=== PATIENT | female | born 1940 | race Caucasian/White ===

== ENCOUNTER 2017-03-12 11:55 | Emergency (ER) | payer OTHER ==
--- NOTE | 2017-03-12 12:08 | PDOC ---
History of Present Illness - General Stated Complaint: RASH Time Seen by Provider: 03/12/17 12:08 *DC/Admit/Observation/Transfer - Attestations Physician Attestion: 03/12/17 12:08 I, Dr. Raghav Bergeron, attest that this document has been prepared under my direction and personally reviewed by me in its entirety. I further attest, that it accurately reflects all work, treatment, procedures and medical decision -making performed by me.
[2017-03-12 12:21] VITALS: BP 161/79; PULSE 64; TEMP 98.7; BMI 30.2
[2017-03-12] MEDS ORDERED: methylPREDNISolone NA SUCC 125 MG/2 ML VIAL IVPB ONE (12:32)
[2017-03-12] MEDS ORDERED: methylPREDNISolone NA SUCC 125 MG/2 ML VIAL ONE (12:47)
[2017-03-12 12:51] LABS: BASOPHIL 0.5 % (0-2.0); EOSINOPHIL 4.9 % (0-4.5); MCH 27.6 pg (25.7-33.7); MCHC 33.1 g/dl (32.0-36.0); MEAN CELL VOLUME 83.5 fl (80-96); MEAN PLT VOLUME 8.5 fl (7.5-11.1); NEUTROPHILS 73.6 % (42.8-82.8); PLATELET COUNT 211 K/MM3 (134-434); RDW 14.5 % (11.6-15.6); WHITE BLOOD COUNT 9.1 K/mm3 (4.0-10.0)
[2017-03-12 13:18] LABS: ALBUMIN 3.5 g/dl (3.4-5.0); ALK PHOS 66 U/L (45-117); ANION GAP 10 (8-16); BILIRUBIN,TOTAL 0.5 mg/dL (0.2-1.0); CALCIUM 8.8 mg/dL (8.5-10.1); CO2 31 mmol/L (21-32); CREATININE 0.9 mg/dL (0.55-1.02); GLUCOSE,RANDOM 87 mg/dL (74-106); SGOT/AST 15 U/L (15-37); SGPT/ALT 27 U/L (12-78)
[2017-03-12] MEDS ORDERED: POTASSIUM CHLORIDE TABS 20 MEQ TABLET.ER (FP) PO ONE ×2 (13:46→13:59)
--- NOTE | 2017-03-12 14:09 | PDOC ---
History of Present Illness - General Chief Complaint: Rash Stated Complaint: RASH Time Seen by Provider: 03/12/17 12:08 History Source: Patient, Other (son) Exam Limitations: No Limitations - History of Present Illness Initial Comments: 03/12/17 14:04 77-year-old female presents the ED with complaints of pruritic rash to lower extremities now radiating to her pressure recent torso. Patient states was seen last week and a nearby ER and was told that she likely had a fungal rash. Patient did have skin biopsies done by filer repairer and was told her , it was not scabies but did prescribe permethrin upon discharge. Patient states itching continues and denies any fever, chills, arthralgia or myalgia. Patient was also seen by infectious disease physician who related to fungus. Timing/Duration: other (3 weeks) Severity: moderate Associated Symptoms: reports: rash Past History - Travel Traveled outside of the country in the last 30 days: No Close contact w/someone who was outside of country & ill: No - Past Medical History Allergies/Adverse Reactions: Allergies Allergy/AdvReac Type Severity Reaction Status Date / Time No Known Allergies Allergy Verified 03/12/17 12:21 Home Medications: Ambulatory Orders Amlodipine Besylate 10 mg PO DAILY 03/12/17 Apixaban [Eliquis] 5 mg PO DAILY 03/12/17 Atorvastatin Ca [Lipitor] 20 mg PO HS 03/12/17 Cephalexin [Keflex] 500 mg PO DAILY 03/12/17 Clotrimazole 15 gm TP DAILY 03/12/17 Hydrochlorothiazide 25 mg PO DAILY 03/12/17 Levothyroxine [Synthroid -] 75 mcg PO DAILY 03/12/17 Oxybutynin Chloride [Oxybutynin Chloride ER] 10 mg PO DAILY 03/12/17 Permethrin [Lice Killing] 1 applic TP ONCE #1 liquid 03/12/17 Potassium Chloride 10 meq PO DAILY 03/12/17 Potassium Chloride [K-Dur -] 40 meq PO ONCE #2 tablet.er 03/12/17 Prednisone [Deltasone -] 40 mg PO DAILY #6 tablet 03/12/17 Propranolol HCl [Inderal LA -] 60 mg PO DAILY 03/12/17 Raloxifene HCl 60 mg PO DAILY 03/12/17 Sertraline HCl [Zoloft] 100 mg PO DAILY 03/12/17 Triamcinolone 0.1% Cream [Aristocort] 1 applic TP BID 03/12/17 HTN: Yes Hypercholesterolemia: Yes - Psycho/Social/Smoking Cessation Hx Suicidal Ideation: No Smoking History: Never smoked Hx Alcohol Use: No Drug/Substance Use Hx: No Patient Lives Alone: No Lives with/in: son Review of Systems - Review of Systems Able to Perform ROS?: Yes Constitutional: No: Symptoms Reported, Loss of Appetite, Unintentional Wgt. Loss Respiratory: No: Symptoms reported Cardiac (ROS): No: Symptoms Reported ABD/GI: No: Symptoms Reported Musculoskeletal: No: Symptoms Reported Integumentary: Yes: Change in Color, Pruritus, Rash Neurological: No: Symptoms reported Hematologic/Lymphatic: No: Symptoms Reported *Physical Exam - Vital Signs Last Vital Signs Temp Pulse Resp BP Pulse Ox 98.7 F 64 20 161/79 97 03/12/17 12:17 03/12/17 12:17 03/12/17 12:17 03/12/17 12:17 03/12/17 12:17 - Physical Exam General Appearance: Yes: Nourished, Appropriately Dressed. No: Apparent Distress HEENT: positive: Pharynx Normal Neck: positive: Supple Respiratory/Chest: positive: Lungs Clear, Normal Breath Sounds. negative: Respiratory Distress, Accessory Muscle Use Cardiovascular: positive: Regular Rhythm, Regular Rate. negative: Murmur Gastrointestinal/Abdominal: positive: Normal Bowel Sounds, Distended. negative : Tenderness Integumentary: positive: Warm, Moist, Rash (Noted crusting papular scattered rash to the torso greater in the abdominal fold and under the breasts along with between toes. No visible parasite or insects noted) Neurologic: positive: Motor Strength 5/5 (ambulatory) ED Treatment Course - LABORATORY CBC & Chemistry Diagram: 03/12/17 12:36 03/12/17 12:36 - ADDITIONAL ORDERS Additional order review: Laboratory Results 03/12/17 12:36 Sodium 143 Potassium 2.9 L* Chloride 102 Carbon Dioxide 31 Anion Gap 10 BUN 31 H Creatinine 0.9 Creat Clearance w eGFR > 60 Random Glucose 87 Calcium 8.8 Total Bilirubin 0.5 AST 15 ALT 27 Alkaline Phosphatase 66 Total Protein 7.0 Albumin 3.5 03/12/17 12:36 RBC 4.97 MCV 83.5 MCHC 33.1 RDW 14.5 MPV 8.5 Neutrophils % 73.6 Lymphocytes % 12.8 Monocytes % 8.2 Eosinophils % 4.9 H Basophils % 0.5 - Medications Given in the ED: ED Medications Discontinued Medications Generic Name Dose Route Start Last Admin Trade Name Ino PRN Reason Stop Dose Admin Diphenhydramine HCl 25 mg 03/12/17 12:32 03/12/17 12:55 Benadryl Injection - IVPB 03/12/17 12:33 25 mg ONCE ONE Administration Methylprednisolone Sodium Succinate 125 mg 03/12/17 12:32 03/12/17 12:55 Solu-Medrol - IVPB 03/12/17 12:33 125 mg ONCE ONE Administration Potassium Chloride 40 meq 03/12/17 13:46 03/12/17 14:00 K-Dur - PO 03/12/17 13:47 40 meq ONCE ONE Administration Medical Decision Making - Medical Decision Making 03/12/17 14:10 Patient brought in by son for worsening pruritic rash now spreading to her upper arms without fever, chills or increased swelling. . Initially began to her left lower extremity as a small blister that a wound followed by a papular rash to the left lower extremity. As the days went on patient developed a pruritic papular rash greater in the skin folds and between the digits. As per family patient was placed on topical antifungals along with prophylactic for treatment of scabies. On exam patient appears to have a pruritic acute dermatitis along with scabies. Patient ordered for CBC, comp, and a along with IV Solu-Medrol and Benadryl. She 'll be discharged home with the same medication for the next 3 days along with recommendations for home remedies. 03/12/17 14:14 Laboratory Tests 03/12/17 03/12/17 03/12/17 12:36 12:36 12:36 WBC 9.1 RBC 4.97 Hgb 13.7 Hct 41.5 MCV 83.5 MCH 27.6 Plt Count 211 Neutrophils % 73.6 Sodium 143 Potassium 2.9 L* Chloride 102 Carbon Dioxide 31 Anion Gap 10 BUN 31 H Creatinine 0.9 Random Glucose 87 Calcium 8.8 Albumin 3.5 WAYNE Screen Pending Patient given 40 mEq of K-Dur and will repeat dose in 4 hours at home. *DC/Admit/Observation/Transfer Diagnosis at time of Disposition: Scabies - Discharge Dispostion Disposition: HOME - Prescriptions Prescriptions: Prednisone [Deltasone -] 40 mg PO DAILY #6 tablet Potassium Chloride [K-Dur -] 40 meq PO ONCE #2 tablet.er Permethrin [Lice Killing] 1 applic TP ONCE #1 liquid - Referrals Referrals: Helder Lee MD [Primary Care Provider] - - Patient Instructions Printed Discharge Instructions: DI for Scabies Additional Instructions: I do recommend repeating the dose of shampoo applying everywhere from head to toe especially paying attention to the skin folds. If highly recommended that you apply at night and in the morning wash the clothes and then wash off shampoo. Start prednisone tomorrow. Take kdur tablet in 4 hours x 1. May take benadryl 25 mg for itching - Post Discharge Activity
== END 2017-03-12 14:28 | disposition home or self-care (01) ==
LOC: JER 11:55
PROC: 3E033GC Introduction of Other Therapeutic Substance into Peripheral Vein, Percutaneous Approach (ICD-10-PCS; principal; 2017-03-12)
PROC: 3E0233Z Introduction of Anti-inflammatory into Muscle, Percutaneous Approach (ICD-10-PCS; 2017-03-12)
DX: B86 Scabies (principal); I10 Essential (primary) hypertension; E78.00 Pure hypercholesterolemia, unspecified
CPT/HCPCS: 36415; 80053; 85025; 86038; 96374; 96375; 99282-25

== ENCOUNTER 2025-05-09 09:23 | Inpatient (IN) | payer OTHER ==
[2025-05-09 11:07] LABS: BG HCT 47.0 % (32.4-45.2); VENOUS BASE EXCESS -4.1 mmol/L (-2-2); VENOUS O2 SATURATION 82.9 % (70-80); VENOUS PCO2 43.8 mmHg (38-52); VENOUS PH 7.318 (7.310-7.410)
[2025-05-09 11:08] LABS: ABSOLUTE IMMATURE GRANULOCYTES 0.06 x10^3/uL (0.0-0.031); BASOPHILS # 0.04 x10^3/uL (0.01-0.08); EOSINOPHIL % 0.4 % (0.7-5.8); EOSINOPHILS # 0.05 x10^3/uL (0.04-0.36); MCHC 31.1 g/dl (32.2-35.5); MEAN CELL VOLUME 88.5 fl (79.4-94.8); MEAN PLT VOLUME 10.5 fl (9.4-12.3); MONOCYTE # 0.79 x10^3/uL (0.24-0.86); MONOCYTE % 6.0 % (4.7-12.5); RDW 13.9 % (12.5-17.0)
[2025-05-09] MEDS ORDERED: BENZONATATE 200 MG CAPSULE PO ONE ×2 (11:08→19:09)
[2025-05-09] MEDS ORDERED: ACETAMINOPHEN INJECTION 100 ML ONE (11:08)
[2025-05-09] MEDS: BENZONATATE 200 MG CAPSULE PO ONE ×2 (11:18→19:23)
[2025-05-09 11:25] LABS: GLUCOSE,RANDOM 114.0 mg/dL (74-106)
[2025-05-09 11:26] LABS: TOT PROT 7.7 g/dl (6.4-8.2)
[2025-05-09 11:27] LABS: CO2 19.0 mmol/L (21-32)
[2025-05-09 11:28] LABS: ALK PHOS 59.0 U/L (40-150)
[2025-05-09 11:31] LABS: CREATININE 1.1 mg/dL (0.55-1.3); SGOT/AST 37.0 U/L (5-34); SGPT/ALT 23.0 U/L (0-55)
[2025-05-09] MEDS: ACETAMINOPHEN 1000 MG/100 ML BAG IVPB ONE (11:36)
[2025-05-09 11:47] LABS: HCV DIAGNOSTIC IN-HOUSE W/RFLX NON-REACTIVE (NONREACTIVE)
[2025-05-09 11:48] LABS: HIV INTERPRETATION NEGATIVE (NEGATIVE)
[2025-05-09] MEDS ORDERED: ACETAMINOPHEN 325 MG TABLET (FP) ONE (14:11)
[2025-05-09] MEDS ORDERED: ALBUTEROL SO4 2.5/IPRATROPIUM 0.5 INH SOL 3 ML VIAL.NEB. NEB ONE (14:11)
[2025-05-09] MEDS: ALBUTEROL SO4 2.5/IPRATROPIUM 0.5 INH SOL 3 ML VIAL.NEB. NEB ONE (14:20)
[2025-05-09] MEDS: ACETAMINOPHEN 325 MG TABLET (FP) PO ONE (14:20)
[2025-05-09 14:25] LABS: N-TERMINAL BNP 1512.4 pg/mL (0-299.9)
[2025-05-09] MEDS ORDERED: PIPERACILLIN/TAZOB 4.5 GM 4.5 GM/100 ML BAG IVPB ONE (17:16)
[2025-05-09] MEDS: PIPERACILLIN/TAZOB 4.5 GM 4.5 GM in DEXTROSE 5%-WATER 100 ML IVPB ONE (17:49)
[2025-05-09 17:59] LABS: URINE APPEARANCE Clear; URINE BILIRUBIN Negative (NEGATIVE); URINE COLOR Yellow; URINE GLUCOSE (UA) Negative (NEGATIVE); URINE KETONE Negative (NEGATIVE); URINE LEUK ESTERASE Negative (NEGATIVE); URINE NITRITE Negative (NEGATIVE); URINE PROTEIN Trace (NEGATIVE); URINE UROBILINOGEN 0.2 mg/dL (0.2-1.0)
[2025-05-09] MEDS ORDERED: FUROSEMIDE 40 MG/4 ML INJECTABLE VIAL ONE (19:06)
[2025-05-09] MEDS: FUROSEMIDE 40 MG/4 ML INJECTABLE VIAL IVPUSH ONE (19:23)
[2025-05-09] MEDS ORDERED: NITROGLYCERIN SUBLINGUAL 1/150 0.4 MG TAB SL PRN (19:41)
[2025-05-09] MEDS ORDERED: ATORVASTATIN CA 40 MG TABLET (FP) ONE (21:14)
[2025-05-09] MEDS: ATORVASTATIN CA 40 MG TABLET (FP) PO SCH (21:19)
[2025-05-10] MEDS: BENZOCAINE/MENTH/CETYLPYRD CL 1 EACH LOZENGE MM PRN (00:23)
[2025-05-10] MEDS: guaiFENesin/CODEINE 5 ML UNIT-DOSE CUPS PO PRN ×2 (00:23→22:17)
[2025-05-10] MEDS: FUROSEMIDE 40 MG/4 ML INJECTABLE VIAL IVPUSH SCH (06:13)
[2025-05-10] MEDS: LEVOTHYROXINE NA 88 MCG TABLET (FP) PO SCH (06:13)
[2025-05-10 07:37] LABS: ABSOLUTE IMMATURE GRANULOCYTES 0.04 x10^3/uL (0.0-0.031); BASOPHILS # 0.04 x10^3/uL (0.01-0.08); EOSINOPHIL % 1.0 % (0.7-5.8); EOSINOPHILS # 0.11 x10^3/uL (0.04-0.36); MCHC 30.9 g/dl (32.2-35.5); MEAN CELL VOLUME 87.0 fl (79.4-94.8); MEAN PLT VOLUME 10.6 fl (9.4-12.3); MONOCYTE # 0.77 x10^3/uL (0.24-0.86); MONOCYTE % 7.1 % (4.7-12.5); RDW 14.1 % (12.5-17.0)
[2025-05-10 07:43] LABS: INR 1.29 (0.83-1.09); PROTHROMBIN TIME (PATIENT) 14.1 SEC (9.7-13.0)
[2025-05-10 07:59] LABS: GLUCOSE,RANDOM 100.0 mg/dL (74-106); TOT PROT 7.1 g/dl (6.4-8.2)
[2025-05-10 08:00] LABS: CO2 20.0 mmol/L (21-32)
[2025-05-10 08:02] LABS: ALK PHOS 65.0 U/L (40-150)
[2025-05-10 08:03] LABS: N-TERMINAL BNP 2065.8 pg/mL (0-299.9)
[2025-05-10 08:04] LABS: SGOT/AST 20.0 U/L (5-34); SGPT/ALT 21.0 U/L (0-55)
[2025-05-10 08:05] LABS: CREATININE 1.1 mg/dL (0.55-1.3)
[2025-05-10] MEDS ORDERED: APIXABAN 5 MG TABLET PO SCH (10:00)
[2025-05-10] MEDS ORDERED: CARVEDILOL 12.5 MG TABLET (FP) PO SCH (10:00)
[2025-05-10] MEDS: CARVEDILOL 12.5 MG TABLET (FP) PO SCH (10:00)
[2025-05-10] MEDS: ASPIRIN COATED 81 MG TABLET.EC PO SCH (10:01)
[2025-05-10] MEDS: SERTRALINE HCL 50 MG TABLET (FP) PO SCH (10:01)
[2025-05-10] MEDS: SPIRONOLACTONE 25 MG TABLET PO SCH (10:01)
[2025-05-10] MEDS: LOSARTAN POTASSIUM 50 MG TABLET PO SCH (10:01)
[2025-05-10] MEDS: APIXABAN 5 MG TABLET PO SCH (10:01)
[2025-05-10] MEDS: ALBUTEROL SO4 2.5/IPRATROPIUM 0.5 INH SOL 3 ML VIAL.NEB. NEB PRN (13:03)
[2025-05-10] MEDS: ARTIFICIAL TEARS OPHTHALMIC DROPS OU ONE (23:00)
[2025-05-11 07:11] LABS: ABSOLUTE IMMATURE GRANULOCYTES 0.02 x10^3/uL (0.0-0.031); BASOPHILS # 0.06 x10^3/uL (0.01-0.08); EOSINOPHIL % 2.2 % (0.7-5.8); EOSINOPHILS # 0.20 x10^3/uL (0.04-0.36); MCHC 30.8 g/dl (32.2-35.5); MEAN CELL VOLUME 87.1 fl (79.4-94.8); MEAN PLT VOLUME 10.5 fl (9.4-12.3); MONOCYTE # 0.81 x10^3/uL (0.24-0.86); MONOCYTE % 9.1 % (4.7-12.5); RDW 14.0 % (12.5-17.0)
[2025-05-11 07:24] LABS: GLUCOSE,RANDOM 95.0 mg/dL (74-106); TOT PROT 6.5 g/dl (6.4-8.2)
[2025-05-11 07:25] LABS: CO2 22.0 mmol/L (21-32)
[2025-05-11 07:27] LABS: ALK PHOS 60.0 U/L (40-150)
[2025-05-11 07:29] LABS: SGPT/ALT 20.0 U/L (0-55)
[2025-05-11 07:30] LABS: CREATININE 2.14 mg/dL (0.55-1.3); SGOT/AST 18.0 U/L (5-34)
[2025-05-11] MEDS: BENZONATATE 200 MG CAPSULE PO PRN (10:07)
[2025-05-11 13:53] VITALS: BMI 28.3
[2025-05-12 07:37] LABS: MCHC 30.6 g/dl (32.2-35.5); MEAN CELL VOLUME 87.9 fl (79.4-94.8); MEAN PLT VOLUME 10.8 fl (9.4-12.3); RDW 13.9 % (12.5-17.0)
[2025-05-12 07:57] LABS: GLUCOSE,RANDOM 94.0 mg/dL (74-106)
[2025-05-12 07:59] LABS: CO2 21.0 mmol/L (21-32)
[2025-05-12 08:03] LABS: CREATININE 2.48 mg/dL (0.55-1.3)
[2025-05-12] MEDS: AZITHROMYCIN 250 MG TABLET PO ONE (12:33)
[2025-05-12] MEDS: SODIUM CHLORIDE 0.45% 1,000 ML IV SCH (19:37)
[2025-05-12 21:39] LABS: URINE UREA NITROGEN 456.0 mg/dL (350-1000)
[2025-05-13 07:24] LABS: ABSOLUTE IMMATURE GRANULOCYTES 0.02 x10^3/uL (0.0-0.031); BASOPHILS # 0.03 x10^3/uL (0.01-0.08); EOSINOPHIL % 3.6 % (0.7-5.8); EOSINOPHILS # 0.26 x10^3/uL (0.04-0.36); MCHC 31.3 g/dl (32.2-35.5); MEAN CELL VOLUME 87.4 fl (79.4-94.8); MEAN PLT VOLUME 10.7 fl (9.4-12.3); MONOCYTE # 0.56 x10^3/uL (0.24-0.86); MONOCYTE % 7.8 % (4.7-12.5); RDW 13.8 % (12.5-17.0)
[2025-05-13 07:50] LABS: GLUCOSE,RANDOM 110.0 mg/dL (74-106); TOT PROT 5.8 g/dl (6.4-8.2)
[2025-05-13 07:51] LABS: CO2 20.0 mmol/L (21-32)
[2025-05-13 07:53] LABS: ALK PHOS 54.0 U/L (40-150)
[2025-05-13 07:55] LABS: SGOT/AST 16.0 U/L (5-34); SGPT/ALT 16.0 U/L (0-55)
[2025-05-13 07:56] LABS: CREATININE 1.72 mg/dL (0.55-1.3)
[2025-05-13] MEDS: AZITHROMYCIN 250 MG TABLET PO SCH (10:50)
[2025-05-13] MEDS: ALBUTEROL SO4 2.5/IPRATROPIUM 0.5 INH SOL 3 ML VIAL.NEB. NEB ONE (14:01)
[2025-05-13 16:30] VITALS: RESP 18
[2025-05-13 17:49] VITALS: BP 111/55; PULSE 58; TEMP 97
== END 2025-05-13 18:36 | disposition home health service (06) | DRG 291 ==
LOC: JER 09:23 → JERBED 15:26 → J4W 22:52 → OBSVTOIN 05-10 10:33
PROVIDERS: ADMIT Hospitalist; ATTEND Internal Medicine
DX: I11.0 Hypertensive heart disease with heart failure (principal); I50.23 Acute on chronic systolic (congestive) heart failure; N17.9 Acute kidney failure, unspecified; J45.909 Unspecified asthma, uncomplicated; E03.9 Hypothyroidism, unspecified; K76.89 Other specified diseases of liver; E78.5 Hyperlipidemia, unspecified; I25.10 Atherosclerotic heart disease of native coronary artery without angina pectoris; I48.0 Paroxysmal atrial fibrillation; R13.10 Dysphagia, unspecified; R06.01 Orthopnea; J02.9 Acute pharyngitis, unspecified; I95.9 Hypotension, unspecified; R42 Dizziness and giddiness
CPT/HCPCS: 36415; 70450-TC; 71045-TC-FY; 71046-TC-FY; 71250-TC; 76705-TC; 76775-TC; 80048; 80053; 81003; 82570; 82803; 82962; 83605; 83735; 83880; 84100; 84443; 84484; 84540; 85025; 85027; 85610; 86803; 87040; 87070; 87086; 87205; 87389; 87637-QW; 87899; 93005; 93010; 93306-TC; 94640; 97116-GP; 97161-GP; 99285-25; G0378